=== PATIENT | female | born 1960 | race Caucasian/White ===

== ENCOUNTER 2021-12-23 04:00 | Day surgery (SDC) | payer OTHER ==
[2021-12-18 10:24] VITALS: BMI 24.9
[2021-12-23 10:11] VITALS: RESP 18
[2021-12-23] MEDS ORDERED: PROPOFOL 20 ML ONE (12:14)
[2021-12-23] MEDS ORDERED: oxyCODONE HCL 5 MG TABLET PO PRN (12:25)
[2021-12-23] MEDS ORDERED: KETOROLAC TROMETHAMINE 30 MG/1 ML VIAL ONE (12:25)
[2021-12-23 17:05] VITALS: BP 120/70; PULSE 72; TEMP 98.1
== END 2021-12-23 15:35 | disposition home or self-care (01) ==
LOC: JASU-SURG 04:00
PROVIDERS: ATTEND Urology
PROC: 0TF7XZZ Fragmentation in Left Ureter, External Approach (ICD-10-PCS; principal; 2021-12-23 12:00)
DX: N20.1 Calculus of ureter (principal)